=== PATIENT | female | born 1945 | race African-American/Black ===

== ENCOUNTER 2016-04-12 04:51 | Inpatient (IN) ==
[2016-04-12] MEDS ORDERED: SODIUM CHLORIDE 0.9% 100 ML IV ONE (06:00)
[2016-04-12] MEDS ORDERED: ceFAZolin 1,000 MG VIAL ONE (06:00)
[2016-04-12] MEDS ORDERED: VANCOMYCIN 1,000 MG VIAL ONE (06:00)
[2016-04-12] MEDS ORDERED: VANCOMYCIN INJ 1,000 MG in SODIUM CHLORIDE 0.9% 250 ML IV ONE (06:00)
[2016-04-12] MEDS ORDERED: ROPIVACAINE 0.5% 30 ML VIAL ONE (06:05)
[2016-04-12] MEDS: LACTATED RINGERS 1,000 ML IV SCH ×4 (06:15→17:49)
[2016-04-12] MEDS ORDERED: DIAZEPAM 5 MG TABLET ONE (06:37)
[2016-04-12] MEDS ORDERED: DIAZEPAM 5 MG TABLET PO ONE (06:38)
--- NOTE | 2016-04-12 06:48 | History and Physical Update ---
History and Physical Update - History and Physical H&P was reviewed, the patient examined and there: are no changes in the patients condition since last H&P was completed.
[2016-04-12] MEDS ORDERED: LIDOCAINE 1% 5 ML VIAL ONE (07:00)
[2016-04-12] MEDS ORDERED: PROPOFOL 200 MG/20 ML VIAL IV ONE (07:00)
[2016-04-12] MEDS ORDERED: ONDANSETRON 4 MG/2 ML VIAL ONE (07:00)
[2016-04-12] MEDS ORDERED: BACITRACIN OINT 0.9 GM PACK TOP ONE (08:11)
[2016-04-12] MEDS ORDERED: ZALEPLON 5 MG CAPSULE PO PRN (08:35)
[2016-04-12] MEDS ORDERED: oxyCODONE IR 5 MG TABLET PO PRN (08:35)
[2016-04-12] MEDS ORDERED: ONDANSETRON 4 MG/2 ML VIAL IV PRN (08:35)
[2016-04-12] MEDS ORDERED: diphenhydrAMINE CAP 25 MG CAPSULE PO PRN (08:35)
[2016-04-12] MEDS ORDERED: MAGNESIUM HYDROXIDE SUSP 30 ML UDCUP PO PRN (08:35)
[2016-04-12] MEDS ORDERED: MORPHINE 2 MG/1 ML SYRINGE IV PRN ×2 (08:35)
--- NOTE | 2016-04-12 08:45 | Operative Note ---
Date of procedure: 04/12/16 Procedure: DIAGNOSIS: Right knee primary osteoarthrosis PROCEDURE: Right total knee arthroplasty (cpt #37326) SURGEON: Margie LIQUOR TESTER: Man Lorenzo ANESTHESIA: Spinal with a postoperative femoral nerve block PROCEDURE and FINDINGS: After adequate was induced, the patient's knee was prepped and draped in the usual sterile fashion. The limb was exsanguinated with Esmarch. Tourniquet was inflated to 300 mmHg. A median parapatellar approach was made. Femur was cut using an intramedullary guide and a 4 in 1 cutting jig in 5 degrees of valgus. ACL and menisci were excised. Tibia was cut using intramedullary guide. Patella was cut using freehand technique. Components were trialed. Tibial fin was prepared. Components are cemented in place using Palacos cement and modern cementing techniques. Cement was removed. A 1/8 inch Hemovac drain was placed. The knee was well-balanced and full range of motion with central tracking patella. Deep layers closed with 0-0 Vicryl. Superficial layers were closed with 2-0 and 3-0 Vicryl. Skin was approximated with nicola. Bacitracin and a sterile dressing was applied. Patient was transferred to recovery. A postoperative femoral nerve block is anticipated. COMPONENTS: The Denia Persona system was used. 8 CR narrow femur, E natural tibia, 10 mm liner, 32 mm patella TOURNIQUET TIME: 28 minutes Surgeon / Physician: Ridge Hanson Jr. Discharge Plan - Discharge Medications No Action Triamterene/Hctz 75-50 Tab [Maxzide 75-50] 1 tablet PO DAILY - Follow Up or Referral - Forms/Instructions
--- NOTE | 2016-04-12 08:53 | Anesthesia ---
Anesthesia Post OP - Post Ansesthetic Evaluation Patient seen in post op: Yes Resp: within normal limits CV: within normal limits Mental: within normal limits Temp: within normal limits Spyc-Is-Wlpjdpopi: within normal limits Nausea and Vomiting: within normal limits Pain: within normal limits
[2016-04-12] MEDS ORDERED: fentaNYL 100 MCG/2 ML VIAL ONE (08:54)
[2016-04-12] MEDS ORDERED: SODIUM CHLORIDE 0.9% 200 ML IV ONE (08:54)
[2016-04-12] MEDS ORDERED: MIDAZOLAM 2 MG/2 ML VIAL ONE (08:54)
[2016-04-12] MEDS ORDERED: ACETAMINOPHEN 1,000 MG/100 ML VIAL IV ONE (08:54)
[2016-04-12] MEDS ORDERED: TRANEXAMIC ACID 1,000 MG/10 ML VIAL IV ONE (08:56)
--- NOTE | 2016-04-12 09:34 | Anesthesia ---
Anesthesia Procedures - Nerve Blocks Nerve Block Consent: Requested by surgeon for postoperative pain control Main Anesthetic: spinal anesthesia block Location: PACU Position: supine Type of Block: Right: Femoral Patinet Consent: Patinet consented for above nerve block., Risks and benefits were discussed with patient,including infection,, bleeding,injury to surrounding structures, seizure, temporary nerve, Patient understands and accepts potential risks/benefits and agrees to, proceed. ASA Monitors on: pulse oximetry, EKG, BP cuff, oxygen via Local Anesthetic: Sterile technique with 2% Chlorhexidine / Betadine, 0.5% Ropivicaine, other Ultrasound Used to: Recognize Landmarks, Visualize Femoral Nerve (Visualized femoral nerve artery and vein.) Nerve Stimulator used: No Inject slowly in 5cc increments with:: Negative aspitation of heme Patient vitals signs stable throughout procedure.: Patient tolertaed the procedure well with no apparent complications.
--- NOTE | 2016-04-12 12:15 | XRay Report ---
Referring Physician: Ridge Hanson Jr Exam: XR knee 2V RT Date: April 12, 2016 at 8:39 AM Reason: Replacement right knee Comparison: None Findings: The patient is status post right total knee replacement. Position and alignment appear satisfactory. A surgical drain and surgical skin nicola are seen at the anterior aspect of the right knee. There is also soft tissue air which is likely related to recent surgery. A vertically oriented linear lucency is seen at the medial femoral condyle adjacent to the replacement. This could represent artifact since an overlying device projects in this region. However, it is difficult to exclude a nondisplaced fracture, and followup is recommended. Impression: 1. The patient is status post right total knee replacement. Position and alignment appear satisfactory. 2. A vertically oriented linear lucency is seen at the medial epicondyle adjacent to the joint replacement. This may represent artifact, but a nondisplaced fracture is difficult to exclude in this area. Followup x-rays are recommended. PROCEDURE INTERPRETED AT [facility] DEPARTMENT OF RADIOLOGY Final Report Signed by: Dr. Kwaku Welch
[2016-04-12] MEDS: KETOROLAC 30 MG/1 ML VIAL IV SCH ×3 (12:18→21:37)
[2016-04-12] MEDS: ACETAMINOPHEN 500 MG TABLET PO SCH ×3 (12:18→23:57)
[2016-04-12] MEDS: DOCUSATE SODIUM 100 MG CAPSULE PO SCH ×2 (12:19→21:37)
[2016-04-12] MEDS: TRIAMTERENE/HCTZ 75-50 MG TABLET PO SCH (12:29)
--- NOTE | 2016-04-12 13:14 | Pulmonology Progress Note ---
Pulmonary - PN: Subj Interval history: The patient is 71-year-old black lady that had a right total knee replacement today. She has had considerable degenerative arthritis and needs to the knee replacement. She did well with surgery today and is feeling okay. She says her right leg is still somewhat numb. She has a history of hypertension but she said her breathing is doing well. She is not having any chest pain and did not have any trouble with anesthesia. Exam (Progress Note) - Constitutional Vitals: Period Temp Pulse Resp BP Sys/Jin Pulse Ox Last 24 Hr 97.7 F-97.9 F 86-96 12-20 100-185/55-94 98-100 General appearance: no acute distress, over weight - Head Head exam: Present: normal inspection, normocephalic - Eye Eye exam: Present: EOMI. Absent: scleral icterus Pupils: Present: ALEC - ENT ENT exam: Present: normal exam - Neck Neck exam: Present: normal inspection. Absent: lymphadenopathy, thyromegaly - Respiratory Respiratory exam: Present: clear to auscultation bilaterally. Absent: rhonchi, wheezes - Cardiovascular Cardiovascular exam: Present: regular rate and rhythm. Absent: gallop, systolic murmur - GI/Abdominal GI/Abdominal exam: Present: normal bowel sounds, soft. Absent: organomegaly, tenderness - Extremities Exam Extremities exam: Present: other (the right leg is splinted.). Absent: calf tenderness - Neurological Exam Neurological exam: Present: alert, oriented X3, CN II-XII intact - Psychiatric Psychiatric exam: Present: normal affect, normal mood - Skin Skin exam: Present: warm, dry Assessment and Plan (1) Status post total right knee replacement Status: Acute Assessment and plan: The patient had her surgery today and did well with a right total knee replacement. She is fairly stable and not having any respiratory difficulties. She did well with surgery today. She will continue with physical therapy postop. Current Visit: Yes (2) Hypertension Status: Acute Assessment and plan: We will monitor blood pressure and she is hemodynamically stable at present Current Visit: Yes Specialty Discharge - Follow Up or Referrals - Discharge Medications No Action Triamterene/Hctz 75-50 Tab [Maxzide 75-50] 1 tablet PO DAILY
--- NOTE | 2016-04-12 13:53 | Orthopedic Progress Note ---
Orthopedics - Subjective Interval history: Doing well post op. NV ok. Dressing intact. Continue with protocol. Exam - Constitutional Vitals: Period Temp Pulse Resp BP Sys/Jin Pulse Ox Last 24 Hr 97.7 F-97.9 F 86-96 12-20 100-185/55-94 98-100 Specialty Discharge - Follow Up or Referrals - Discharge Medications No Action Triamterene/Hctz 75-50 Tab [Maxzide 75-50] 1 tablet PO DAILY
[2016-04-12] MEDS: ceFAZolin 2,000 MG in PREMIX 1 EACH IV SCH ×2 (15:48→23:58)
[2016-04-13] MEDS: KETOROLAC 30 MG/1 ML VIAL IV SCH (04:07)
[2016-04-13] MEDS: LACTATED RINGERS 1,000 ML IV SCH ×2 (04:09→08:44)
[2016-04-13] MEDS: ACETAMINOPHEN 500 MG TABLET PO SCH (06:23)
[2016-04-13] MEDS: FONDAPARINUX 2.5 MG/0.5 ML SYRINGE SUBCUT SCH (06:24)
[2016-04-13 06:25] LABS: Basophils % 0.1 % (0.0-0.8); Eosinophils # 0.3 10*3/uL (0.0-0.87); Eosinophils % 3.4 % (0.00-10.9); Hematocrit 32.2 VOL% (35.7-47.0); Hemoglobin 10.5 GM/DL (12.0-16.0); Immature Granulocytes % 0.1 %; Immature Granulocytes Absolute 0.01 #; Lymphocytes # 1.9 10*3/uL (1.4-4.0); Lymphocytes % 25.6 % (21.3-54.2); Mean Corpuscular HGB Conc 32.6 GM/DL (32-36); Mean Corpuscular Hemoglobin 29 PG (27-34); Mean Corpuscular Volume 87.7 FL (87-102); Mean Platelet Volume 9.5 FL (9.6-12.0); Monocytes # 0.9 10*3/uL (0.11-0.8); Monocytes % 11.3 % (1.7-12.7); Neutrophils # 4.5 10*3/uL (1.4-7.4); Neutrophils % 59.5 % (38.7-73.9); Platelet Count 288 10*3/uL (130-400); Red Blood Count 3.67 10*6/uL (3.8-5.5); Red Cell Distribution Width 11.9 % (9.3-17.3); White Blood Count 7.6 10*3/uL (4.5-13.71)
[2016-04-13 06:57] LABS: Calcium 8.6 MG/DL (8.5-10.1); Potassium 3.3 MMOL/L (3.5-5.1)
[2016-04-13] MEDS: TRIAMTERENE/HCTZ 75-50 MG TABLET PO SCH (08:20)
[2016-04-13] MEDS: DOCUSATE SODIUM 100 MG CAPSULE PO SCH ×2 (08:20→20:35)
[2016-04-13] MEDS: POTASSIUM CHLORIDE 20 MEQ TABLET PO SCH ×2 (08:20→20:35)
--- NOTE | 2016-04-13 11:06 | Pulmonology Progress Note ---
Pulmonary - PN: Subj Interval history: This is a 71-year-old black female whom I am seeing for Dr. Emory Taylor. This patient was cleared for surgery by Dr. Taylor. She had a right total knee replacement. She has done well postoperatively. She had no complaints today she seemed to be doing well with physical therapy. The patient has a history of high blood pressure and this is under good control Lab. H&H 10.5/32.2. White count 7600 with a normal differential. Platelets 288,000. Potassium is low at 3.3. Creatinine is 1.3. BUN is 14. Physical exam. Vital signs. See below General. No distress Psychiatric oriented 3. Neurologic. Cranial nerves are intact. Patient moves all 4 extremities. Face appears to be normal. Neck symmetrical. No meningismus. Chest. Clear Heart no gallop Obese and nontender with positive bowel sounds Extremities nothing to suggest deep venous thrombophlebitis. The remainder the physical exam is negative. Plan. #1 Micro-K 8 mEq twice daily 2 follow-up BMP. Exam (Progress Note) - Constitutional Vitals: Period Temp Pulse Resp BP Sys/Jin Pulse Ox Last 24 Hr 98.0 F-100.0 F 94-104 18-20 128-165/70-98 92-100 Results - Labs CBC & BMP: 04/13/16 05:44 04/13/16 05:44 Specialty Discharge - Follow Up or Referrals - Discharge Medications No Action Triamterene/Hctz 75-50 Tab [Maxzide 75-50] 1 tablet PO DAILY
[2016-04-13] MEDS: POTASSIUM CHLORIDE 8 MEQ CAPSULE PO SCH (20:35)
[2016-04-14 05:27] LABS: Basophils % 0.2 % (0.0-0.8); Eosinophils # 0.2 10*3/uL (0.0-0.87); Eosinophils % 2.5 % (0.00-10.9); Hematocrit 33.5 VOL% (35.7-47.0); Immature Granulocytes % 0.2 %; Immature Granulocytes Absolute 0.02 #; Lymphocytes # 1.9 10*3/uL (1.4-4.0); Lymphocytes % 20.4 % (21.3-54.2); Mean Corpuscular HGB Conc 32.8 GM/DL (32-36); Mean Corpuscular Hemoglobin 29 PG (27-34); Mean Corpuscular Volume 87.7 FL (87-102); Mean Platelet Volume 9.6 FL (9.6-12.0); Monocytes # 0.8 10*3/uL (0.11-0.8); Monocytes % 9.1 % (1.7-12.7); Neutrophils # 6.2 10*3/uL (1.4-7.4); Neutrophils % 67.6 % (38.7-73.9); Platelet Count 284 10*3/uL (130-400); Red Blood Count 3.82 10*6/uL (3.8-5.5); Red Cell Distribution Width 11.9 % (9.3-17.3); White Blood Count 9.1 10*3/uL (4.5-13.71)
[2016-04-14] MEDS: FONDAPARINUX 2.5 MG/0.5 ML SYRINGE SUBCUT SCH (06:22)
[2016-04-14 06:51] LABS: Calcium 8.7 MG/DL (8.5-10.1); Potassium 3.9 MMOL/L (3.5-5.1)
--- NOTE | 2016-04-14 07:25 | Orthopedic Progress Note ---
Orthopedics - Subjective Interval history: Mrs. Mills is comfortable. She's been able to ambulate in the room with assistance. Dressings clean, dry and intact. Right lower extremity is neurovascularly unchanged. Plan: Continue physical therapy. Discharge planning. Exam - Constitutional Vitals: Period Temp Pulse Resp BP Sys/Jin Pulse Ox Last 24 Hr 98.1 F-99.1 F 86-110 18-20 162-168/71-87 95-99 Results - Labs CBC & BMP: 04/14/16 04:57 04/14/16 04:57 Specialty Discharge - Follow Up or Referrals - Discharge Medications No Action Triamterene/Hctz 75-50 Tab [Maxzide 75-50] 1 tablet PO DAILY
[2016-04-14] MEDS: TRIAMTERENE/HCTZ 75-50 MG TABLET PO SCH (08:45)
[2016-04-14] MEDS: POTASSIUM CHLORIDE 8 MEQ CAPSULE PO SCH ×2 (08:45→20:49)
[2016-04-14] MEDS: DOCUSATE SODIUM 100 MG CAPSULE PO SCH ×2 (08:45→20:49)
--- NOTE | 2016-04-14 11:53 | Pulmonology Progress Note ---
Pulmonary - PN: Subj Interval history: 04/13/2016. This is a 71-year-old black female whom I am seeing for Dr. Emory Taylor. This patient was cleared for surgery by Dr. Taylor. She had a right total knee replacement. She has done well postoperatively. She had no complaints today she seemed to be doing well with physical therapy. The patient has a history of high blood pressure and this is under good control Lab. H&H 10.5/32.2. White count 7600 with a normal differential. Platelets 288,000. Potassium is low at 3.3. Creatinine is 1.3. BUN is 14. 04/14/2016. This patient says her knee is stiff otherwise she is doing fine pain is unbearable to her and she thinks eventually she will be a lot better she has no complaints. There were no new requests. White count is 9100. H&H is stable 11.0/33.5. Platelets of 284,000. Electrolytes are normal. Creatinine is dropped from 1.30-0.80 with a BUN of 10. Physical exam. Vital signs. See below General. No distress Psychiatric oriented 3. Neurologic. Cranial nerves are intact. Patient moves all 4 extremities. Face appears to be normal. Neck symmetrical. No meningismus. Chest. Clear Heart no gallop Obese and nontender with positive bowel sounds Extremities nothing to suggest deep venous thrombophlebitis. The remainder the physical exam is negative. Plan. #1 Micro-K 8 mEq twice daily started 04/13/2016. 2 follow-up BMP. On 04/14/2016 is normal. Exam (Progress Note) - Constitutional Vitals: Period Temp Pulse Resp BP Sys/Jin Pulse Ox Last 24 Hr 98.1 F-99.1 F 86-110 17-20 162-195/71-86 95-99 Results - Labs CBC & BMP: 04/14/16 04:57 04/14/16 04:57 Specialty Discharge - Follow Up or Referrals - Discharge Medications No Action Triamterene/Hctz 75-50 Tab [Maxzide 75-50] 1 tablet PO DAILY
[2016-04-15 05:57] LABS: Basophils % 0.3 % (0.0-0.8); Eosinophils # 0.2 10*3/uL (0.0-0.87); Hematocrit 33.5 VOL% (35.7-47.0); Hemoglobin 10.9 GM/DL (12.0-16.0); Immature Granulocytes % 0.3 %; Immature Granulocytes Absolute 0.02 #; Lymphocytes # 2.3 10*3/uL (1.4-4.0); Lymphocytes % 28.4 % (21.3-54.2); Mean Corpuscular HGB Conc 32.5 GM/DL (32-36); Mean Corpuscular Hemoglobin 29 PG (27-34); Mean Corpuscular Volume 88.4 FL (87-102); Mean Platelet Volume 9.7 FL (9.6-12.0); Monocytes # 0.8 10*3/uL (0.11-0.8); Monocytes % 10.5 % (1.7-12.7); Neutrophils # 4.6 10*3/uL (1.4-7.4); Neutrophils % 57.5 % (38.7-73.9); Platelet Count 277 10*3/uL (130-400); Red Blood Count 3.79 10*6/uL (3.8-5.5); White Blood Count 7.9 10*3/uL (4.5-13.71)
[2016-04-15] MEDS: FONDAPARINUX 2.5 MG/0.5 ML SYRINGE SUBCUT SCH (06:19)
--- NOTE | 2016-04-15 08:18 | Orthopedic Progress Note ---
Orthopedics - Subjective Interval history: Ms. Mills is improving. Yesterday she was just able to ambulate to the escobar. Dressing shows some slight serosanguineous drainage. She's neurovascularly intact. Plan: Continue physical therapy. Plan discharge home with home health therapy tomorrow. Exam - Constitutional Vitals: Period Temp Pulse Resp BP Sys/Jin Pulse Ox Last 24 Hr 96.8 F-99.2 F 98-100 17-20 151-185/73-86 97-99 Results - Labs CBC & BMP: 04/15/16 05:32 04/14/16 04:57 Specialty Discharge - Follow Up or Referrals - Discharge Medications No Action Triamterene/Hctz 75-50 Tab [Maxzide 75-50] 1 tablet PO DAILY
[2016-04-15] MEDS: POTASSIUM CHLORIDE 8 MEQ CAPSULE PO SCH ×2 (08:27→22:28)
[2016-04-15] MEDS: DOCUSATE SODIUM 100 MG CAPSULE PO SCH ×2 (08:27→22:28)
[2016-04-15] MEDS: TRIAMTERENE/HCTZ 75-50 MG TABLET PO SCH (08:27)
--- NOTE | 2016-04-15 13:18 | Pathology Report from [facility] ---
ACCESSION # : [id number] PATIENT NAME : Sander Mills ORDERING DR : MARKUS KHAN MD CLINICAL HX: RT knee osteoarthritis POST-OP DX: Same SPECIMEN INFO: RT knee bone & tissue GROSS DESCRIPTION: The specimen is received in formalin labeled with the patient 's name and consists of an aggregate of brooke bone and soft tissue and cartilage measuring 13.0 x 5.0 cm. The articular surfaces are focally degenerative with areas of eburnation seen. Fine Arts Model sections submitted in one cassette. DIAGNOSIS FOR SANDER MILLS: RIGHT KNEE BONE & TISSUE, TOTAL REPLACEMENT: Osteoarthritis. SERVICE DATE: 04/12/2016 REPORT DATE: 04/15/2016 PATHOLOGIST: Connie Cottrell M.D. [facility]
--- NOTE | 2016-04-15 17:40 | Pulmonology Progress Note ---
Pulmonary - PN: Subj Interval history: The patient is 71-year-old black lady that had a right total knee replacement. She has done fairly well over the weekend and is doing some physical therapy. She has not had a bowel movement yet. She says her leg is feeling better. She will probably go home tomorrow. Exam (Progress Note) - Constitutional Vitals: Period Temp Pulse Resp BP Sys/Jin Pulse Ox Last 24 Hr 97.9 F-99.2 F 89-119 18-20 151-164/73-91 94-99 Exam: General appearance: no acute distress, over weight, she is comfortable lying in bed. - Head Head exam: Present: normal inspection, normocephalic - Eye Eye exam: Present: EOMI. Absent: scleral icterus Pupils: Present: ALEC - ENT ENT exam: Present: normal exam - Neck Neck exam: Present: normal inspection. Absent: lymphadenopathy, thyromegaly - Respiratory Respiratory exam: Present: clear to auscultation bilaterally. She is moving air well without any wheezing. - Cardiovascular Cardiovascular exam: Present: regular rate and rhythm. Absent: gallop, systolic murmur - GI/Abdominal GI/Abdominal exam: Present: normal bowel sounds, soft. Absent: organomegaly, tenderness - Extremities Exam Extremities exam: Present: other (the right leg is splinted. She is moving around little better.). Absent: calf tenderness - Neurological Exam Neurological exam: Present: alert, oriented X3, CN II-XII intact - Psychiatric Psychiatric exam: Present: normal affect, normal mood - Skin Skin exam: Present: warm, dry Results - Labs CBC & BMP: 04/15/16 05:32 04/14/16 04:57 Assessment and Plan (1) Status post total right knee replacement Status: Acute Assessment and plan: The patient has done well with her knee replacement. She is tolerating physical therapy and her pain is better. She will probably go home tomorrow. Current Visit: Yes (2) Hypertension Status: Acute Assessment and plan: We will monitor blood pressure and she is hemodynamically stable at present. She is not having any medical problems at present. Current Visit: Yes Specialty Discharge - Follow Up or Referrals - Discharge Medications No Action Triamterene/Hctz 75-50 Tab [Maxzide 75-50] 1 tablet PO DAILY
[2016-04-16] MEDS: FONDAPARINUX 2.5 MG/0.5 ML SYRINGE SUBCUT SCH (06:12)
--- NOTE | 2016-04-16 08:31 | Discharge Summary ---
Hospital Course - Hospital Course Hospital Course: Mrs. Mills was admitted after undergoing an uncomplicated right total knee arthroplasty. She received perioperative DVT and antimicrobial prophylaxis. She received physical therapy. She was discharged home postoperative day #4 in stable condition. She is routine total knee discharge instructions. Specialty Discharge - Follow Up or Referrals Follow up with: Ridge Hanson Jr., MD [Physician] - - Discharge Medications No Action Triamterene/Hctz 75-50 Tab [Maxzide 75-50] 1 tablet PO DAILY Discharge Plan - Discharge Data Disposition: Home Health Service Condition at Discharge: Stable Discharge Diet: advance to your usual diet Hygiene: may shower Weight Bearing at Discharge: weight bear as tolerated - Discharge Medications Continue Triamterene/Hctz 75-50 Tab [Maxzide 75-50] 1 tablet PO DAILY - Follow Up or Referral Follow Up: Ridge Hanson Jr., MD [Physician] - - Forms/Instructions Additional Discharge Instructions: Daily dry dressing changes. Weightbearing as tolerated. No CPM at home.. Arrange walker and bedside commode for home use. Wear SHAE hose for 1 month. Discontinue nicola and Steri-Strip wound on April 24, 2016. Follow-up appointment in 4 weeks. Prescription for Silver Gate 7.5 with 30 tablets was written. Take enteric coated aspirin 325 mg by mouth daily for 21 days. Exam - Constitutional Vitals: Period Temp Pulse Resp BP Sys/Jin Pulse Ox Last 24 Hr 97.9 F-98.5 F 90-119 18-20 146-163/74-91 93-97 DS: Provider Date of admission: 04/12/16 04:51 Primary care physician: . No PCP Attending physician on admission: Ridge Hanson Jr., Consults: 04/12/16 08:35 Consult to Case Mgmt/Social Srvs [CONS] Routine Reason for Case Mgmt/Social Srvs: Rehab Home Health Equipment Consult Comment: Bedside Commode, for home use, patient is 5ft 5in; 268 lbs. Consult to Occupational Therapy [CONS] Routine Reason for Occupational Therapy: Evaluate and Treat Consult Comment: ADL's Consult to Physical Therapy [CONS] Routine Reason for Physical Therapy: Evaluate and Treat Gait Training Start Therapy: Today 04/12/16 10:01 Consult to Physician [CONS] Routine Comment: Consulting Provider: Victorino Taylor Consulting Provider Notified: Yes When should Consulting Provider be notified: Now Person Notified: [email or web address] chaves Date Notified: 04/12/16 Time Notified: 10:02 04/12/16 10:25 Consult to Pharmacy [CONS] Routine Reason for Pharmacy Consult: Adjust Meds Renal Funct 04/15/16 12:58 Consult to Physical Therapy [CONS] Routine Reason for Physical Therapy: Other Consult Comment: Order a Standard Walker for patient to take home f/ home rehab. Discharging clinician: Ridge Hanson Jr., Expected date of discharge: 04/16/16
[2016-04-16] MEDS: DOCUSATE SODIUM 100 MG CAPSULE PO SCH (09:39)
[2016-04-16] MEDS: TRIAMTERENE/HCTZ 75-50 MG TABLET PO SCH (09:39)
[2016-04-16] MEDS: POTASSIUM CHLORIDE 8 MEQ CAPSULE PO SCH (09:39)
--- NOTE | 2016-04-16 09:53 | Pulmonology Progress Note ---
Pulmonary - PN: Subj Interval history: The patient is 71-year-old black lady that had a right total knee replacement. She has done fairly well over the weekend and is doing some physical therapy. She is feeling fairly well and wants to go home. Her knee is doing well. Overall she is quite stable. Exam (Progress Note) - Constitutional Vitals: Period Temp Pulse Resp BP Sys/Jin Pulse Ox Last 24 Hr 97.9 F-98.5 F 90-119 18-20 146-163/74-91 93-97 Exam: General appearance: no acute distress, over weight, she is comfortable sitting up in a chair and moving around better. - Head Head exam: Present: normal inspection, normocephalic - Eye Eye exam: Present: EOMI. Absent: scleral icterus Pupils: Present: ALEC - ENT ENT exam: Present: normal exam - Neck Neck exam: Present: normal inspection. Absent: lymphadenopathy, thyromegaly - Respiratory Respiratory exam: Present: clear to auscultation bilaterally. She is moving air well without any wheezing. - Cardiovascular Cardiovascular exam: Present: regular rate and rhythm. Absent: gallop, systolic murmur - GI/Abdominal GI/Abdominal exam: Present: normal bowel sounds, soft. Absent: organomegaly, tenderness - Extremities Exam Extremities exam: Present: other (the right knee looks good in the wound is doing well. She does not have any swelling or tenderness. ) - Neurological Exam Neurological exam: Present: alert, oriented X3, CN II-XII intact - Psychiatric Psychiatric exam: Present: normal affect, normal mood - Skin Skin exam: Present: warm, dry Results - Labs CBC & BMP: 04/15/16 05:32 04/14/16 04:57 Assessment and Plan (1) Status post total right knee replacement Status: Acute Assessment and plan: The patient has done well with her knee replacement. She is tolerating physical therapy and her pain is better. Her wound looks good. She is getting around fairly well and is going home today. Current Visit: Yes (2) Hypertension Status: Acute Assessment and plan: We will monitor blood pressure and she is hemodynamically stable at present. She is not having any medical problems at present. We will set her up for follow-up in a month. Current Visit: Yes Specialty Discharge - Follow Up or Referrals Follow up with: Ridge Hanson Jr., MD [Physician] - 05/14/16 1:00 pm (4 weeks) - Discharge Medications Continue Triamterene/Hctz 75-50 Tab [Maxzide 75-50] 1 tablet PO DAILY
[2016-04-16 13:48] VITALS: BP 150/69
== END 2016-04-16 12:58 | disposition home health service (06) | DRG 470 ==
LOC: N.SDSINP 04:51 → N.3E 09:41
PROVIDERS: ADMIT Orthopaedic Surgery; ATTEND Orthopaedic Surgery

== ENCOUNTER 2021-02-13 06:13 | Inpatient (IN) ==
[2021-02-08 13:25] LABS: Calcium 9.9 MG/DL (8.5-10.1); Osmolality,Calculated 271.2 MOS/KG (273-304); Potassium 3.6 MMOL/L (3.5-5.1)
[2021-02-08 14:30] LABS: Hypochromasia 4+
[2021-02-08 14:31] LABS: Anisocytosis 2+; Macrocytosis 1+; Microcytosis 1+; Ovalocytes Few; Platelet Estimate Normal; Polychromasia Slight; Target Cells 2+
[2021-02-08 14:36] LABS: Basophils % 0.3 % (0.0-0.8); Eosinophils % 0.2 % (0.00-10.9); Hematocrit 26.6 VOL% (35.7-47.0); Hemoglobin 7.7 GM/DL (12.0-16.0); Immature Granulocytes % 0.5 %; Immature Granulocytes Absolute 0.07 #; Lymphocytes % 14.2 % (21.3-54.2); Mean Corpuscular HGB Conc 28.9 GM/DL (32-36); Mean Corpuscular Volume 66.3 FL (87-102); Mean Platelet Volume 8.6 FL (9.6-12.0); Monocytes % 9.2 % (1.7-12.7); Neutrophils % 75.6 % (38.7-73.9); Platelet Count 815 T/CUMM (130-400); Red Blood Count 4.01 MC/CUMM (3.8-5.5); Red Cell Distribution Width 23.2 % (9.3-17.3); White Blood Count 13.7 T/CUMM (4-12)
[~2021-02-13 06:13] MED LIST: ACETAMINOPHEN 500 MG TABLET ONE; ALVIMOPAN 12 MG CAPSULE PO ONE; ERTAPENEM 1,000 MG in SODIUM CHLORIDE 0.9% 100 ML IV ONE; FAMOTIDINE 20 MG TABLET ONE; GABAPENTIN 400 MG CAPSULE ONE
[2021-02-13] MEDS ORDERED: GABAPENTIN 400 MG CAPSULE PO ONE (07:42)
[2021-02-13] MEDS ORDERED: ACETAMINOPHEN 500 MG TABLET PO ONE (07:42)
[2021-02-13] MEDS ORDERED: FAMOTIDINE 20 MG TABLET PO ONE (07:42)
[2021-02-13] MEDS ORDERED: LACTATED RINGERS 1,000 ML IV SCH (08:00)
[2021-02-13] MEDS ORDERED: DEXMEDETOMIDINE 200 MCG/2 ML VIAL ONE (08:02)
[2021-02-13] MEDS ORDERED: DEXAMETHASONE 4 MG/1 ML VIAL ONE ×2 (08:02→10:56)
[2021-02-13] MEDS ORDERED: LIDOCAINE 1% 5 ML VIAL ONE (08:02)
[2021-02-13] MEDS ORDERED: BUPIVACAINE MPF 0.25% 30 ML VIAL ONE (08:02)
[2021-02-13] MEDS ORDERED: SEVOFLURANE 1 UNIT/15 MINUTE INH ONE ×12 (08:47→11:42)
[2021-02-13] MEDS ORDERED: SUCCINYLCHOLINE 200 MG/10 ML VIAL ONE (08:47)
[2021-02-13] MEDS ORDERED: fentaNYL 100 MCG/2 ML VIAL ONE (08:47)
[2021-02-13] MEDS ORDERED: propofoL 200 MG/20 ML VIAL IV ONE ×2 (08:47→11:42)
[2021-02-13] MEDS ORDERED: LIDOCAINE 2% 5 ML VIAL ONE (08:47)
[2021-02-13] MEDS ORDERED: ROCURONIUM 50 MG/5 ML VIAL IV ONE (08:47)
[2021-02-13] MEDS ORDERED: ONDANSETRON 4 MG/2 ML VIAL ONE (10:56)
[2021-02-13] MEDS ORDERED: KETOROLAC 30 MG/1 ML VIAL ONE ×2 (10:56→11:41)
[2021-02-13] MEDS ORDERED: INDOCYANINE GREEN 25 MG VIAL IV ONE (11:06)
[2021-02-13] MEDS ORDERED: NEOSTIGMINE 10 MG/10 ML VIAL ONE (11:28)
[2021-02-13] MEDS ORDERED: GLYCOPYRROLATE 0.4 MG/2 ML VIAL ONE (11:28)
[2021-02-13] MEDS ORDERED: TISSUE ADHESIVE 1 EACH APPLICATOR TOP ONE ×2 (11:43→11:55)
[2021-02-13] MEDS ORDERED: SUGAMMADEX 200 MG/2 ML VIAL IV ONE (12:01)
[2021-02-13] MEDS ORDERED: ACETAMINOPHEN 325 MG TABLET PO PRN (13:30)
[2021-02-13] MEDS ORDERED: ONDANSETRON 4 MG/2 ML VIAL IV PRN ×2 (13:30→17:35)
[2021-02-13] MEDS ORDERED: MECLIZINE 25 MG TABLET PO PRN (13:30)
[2021-02-13] MEDS ORDERED: HYDROmorphone 2 MG/1 ML VIAL IV PRN (13:30)
[2021-02-13 14:29] LABS: Calcium 9.2 MG/DL (8.5-10.1); Osmolality,Calculated 269.4 MOS/KG (273-304); Potassium 3.1 MMOL/L (3.5-5.1)
[2021-02-13 14:30] LABS: Basophils % 0.2 % (0.0-0.8); Hematocrit 26.4 VOL% (35.7-47.0); Hemoglobin 7.4 GM/DL (12.0-16.0); Immature Granulocytes % 0.8 %; Immature Granulocytes Absolute 0.13 #; Lymphocytes # 0.7 10*3/uL (1.4-4.0); Lymphocytes % 4.5 % (21.3-54.2); Mean Corpuscular Volume 67.5 FL (87-102); Mean Platelet Volume 8.5 FL (9.6-12.0); Monocytes % 2.8 % (1.7-12.7); Neutrophils % 91.7 % (38.7-73.9); Platelet Count 582 T/CUMM (130-400); Red Blood Count 3.91 MC/CUMM (3.8-5.5); Red Cell Distribution Width 23.2 % (9.3-17.3); White Blood Count 15.8 T/CUMM (4-12)
[2021-02-13] MEDS: LACTATED RINGERS 1,000 ML IV SCH (15:31)
[2021-02-13 15:50] LABS: Band Neutrophils 8 % (0-10); Lymphocytes 4 % (20-55); Segmented Neutrophils 86 % (50-85); Total Cells Counted 100
[2021-02-13 16:00] LABS: Hypochromasia Slight; Microcytosis 2+
[2021-02-13 16:01] LABS: Ovalocytes Few; Schistocytes Few
[2021-02-13 16:02] LABS: Platelet Estimate Increased; Polychromasia Slight
[2021-02-13] MEDS: KETOROLAC 15 MG/1 ML VIAL IV SCH ×2 (17:24→23:44)
[2021-02-13] MEDS: FERROUS SULFATE 325 MG TABLET PO SCH (17:24)
[2021-02-13] MEDS ORDERED: ONDANSETRON 4 MG/2 ML VIAL IM ONE (17:33)
[2021-02-13] MEDS ORDERED: PROMETHAZINE 25 MG/1 ML VIAL IM PRN (17:34)
[2021-02-13] MEDS ORDERED: ONDANSETRON 4 MG/2 ML VIAL IV ONE (18:30)
[2021-02-13] MEDS ORDERED: ALVIMOPAN 12 MG CAPSULE PO SCH (21:00)
[2021-02-13] MEDS ORDERED: PANTOPRAZOLE 40 MG TABLET PO SCH (21:00)
[2021-02-14 05:39] LABS: Basophils % 0.1 % (0.0-0.8); Immature Granulocytes % 0.5 %; Immature Granulocytes Absolute 0.05 #; Mean Corpuscular HGB Conc 29.1 GM/DL (32-36); Mean Corpuscular Volume 66.1 FL (87-102); Mean Platelet Volume 8.4 FL (9.6-12.0); Neutrophils % 82.4 % (38.7-73.9); Platelet Count 612 T/CUMM (130-400); Red Blood Count 3.33 MC/CUMM (3.8-5.5); Red Cell Distribution Width 22.5 % (9.3-17.3); White Blood Count 10.9 T/CUMM (4-12)
[2021-02-14] MEDS: KETOROLAC 15 MG/1 ML VIAL IV SCH ×2 (05:42→11:55)
[2021-02-14 05:56] LABS: Calcium 9.7 MG/DL (8.5-10.1); Potassium 3.2 MMOL/L (3.5-5.1)
[2021-02-14 05:58] LABS: Hemoglobin 6.4 GM/DL (12.0-16.0)
[2021-02-14 06:03] LABS: Hypochromasia 2+; Lymphocytes 8 % (20-55); Microcytosis 1+; Platelet Estimate Increased; Segmented Neutrophils 84 % (50-85); Total Cells Counted 100
[2021-02-14] MEDS ORDERED: ENOXAPARIN 40 MG/0.4 ML SYRINGE SUBCUT SCH (06:30)
[2021-02-14] MEDS: LACTATED RINGERS 1,000 ML IV SCH (07:31)
[2021-02-14] MEDS ORDERED: POTASSIUM CHLORIDE 10 MEQ TABLET PO SCH (09:00)
[2021-02-14] MEDS ORDERED: amLODIPine 5 MG TABLET PO SCH (09:00)
[2021-02-14] MEDS ORDERED: MULTIVITAMIN (CENTRUM) TABLET PO SCH (09:00)
[2021-02-14] MEDS: FERROUS SULFATE 325 MG TABLET PO SCH ×2 (09:27→11:55)
[2021-02-14] MEDS: POTASSIUM CHLORIDE 20 MEQ TABLET PO PRN ×2 (09:27→11:55)
[2021-02-14 11:24] VITALS: BP 124/46
[2021-02-14 12:11] LABS: Hemoglobin 6.5 GM/DL (12.0-16.0)
[2021-02-14] MEDS ORDERED: POTASSIUM CHLORIDE 20 MEQ TABLET PO ONE (13:27)
== END 2021-02-14 14:16 | disposition home or self-care (01) | DRG 331 ==
LOC: N.OR 06:13 → N.SDSINP 06:16 → N.3E 13:29
PROVIDERS: ADMIT Surgery; ATTEND Surgery